=== PATIENT | female | born 1950 | race Caucasian/White ===

== ENCOUNTER → 2018-06-11 | Outpatient (CLI) | payer MEDICARE ==
--- NOTE | 2018-06-11 13:10 | ECHOS ---
STRESS ECHOCARDIOGRAM INDICATIONS: Preoperative. MEDICATIONS: Crestor, verapamil, flecainide, , Klonopin, Nexium, Mirapex. BASELINE HEART RATE: 73 BASELINE BLOOD PRESSURE: 189/76 MAXIMUM HEART RATE: 157 MAXIMUM BLOOD PRESSURE: 218/80 85% MPHR: 131 100% MPHR: 154 METS: 4.4 MAXIMUM STAGE REACHED: I TOTAL EXERCISE TIME: 3:00 CLINICAL INFORMATION: Patient was exercised for a total period of 3 minutes. The test was terminated because of shortness of breath. The resting heart rate was 73 beats per minute. Resting blood pressure was 189/76 mmHg. Peak heart rate of 157 was achieved. Maximum blood pressure was 218/80 mmHg. Test was terminated because patient got short of breath. The resting EKG shows normal sinus rhythm with normal KS interval and QRS duration and normal ST-T waves. During exercise J-point depression with upsloping ST segments are noted and occasional PVCs were noted. One episode of ventricular triplet was noted. The baseline echocardiographic images reveals normal left ventricular chamber size with normal left ventricular systolic function in the immediate post exercise period. Normal increase in the wall thickness and contractility is noted. FINAL IMPRESSION: 1. This stress echocardiographic study is negative for stress-induced ischemia. 2. EKG portion of the stress test shows equivocal upsloping ST-segment changes which could be secondary to hypertension. 3. Intermittent premature ventricular contractions and one episode of ventricular triplet was noted. 4. Patient's exercise tolerance is below average. 5. There is a heavy calcification of the tip of the mitral leaflet is noted. MMODL / IJN: [id number] /
== END ==
LOC: RADNMMAIN 09:04
PROVIDERS: ATTEND Internal Medicine Cardiovascular Disease
DX: I49.3 Ventricular premature depolarization (principal); I10 Essential (primary) hypertension
CPT/HCPCS: 93351

== ENCOUNTER → 2023-12-09 | Outpatient (CLI) | payer MEDICARE ==
[2023-12-09 14:54] LABS: African American GFR (CKD) 63 (>60 ml/min/1.73 sqM); Blood Urea Nitrogen 17 mg/dL (7-17); Non-African American GFR(CKD) 55 (>60 ml/min/1.73 sqM)
--- NOTE | 2023-12-09 16:21 | CT ---
EXAMINATION TYPE: CT angio neck DATE OF EXAM: 12/09/2023 COMPARISON: None HISTORY: 89 year-old female I65.21 CAROTID STENOSIS, occlusion and stenosis right internal carotid a rtery TECHNIQUE: Contiguous axial scanning of the neck performed with IV Contrast, patient injected with 75 ML mL of Isovue 370. Coronal/sagittal MIP reconstructions performed. 3-D reconstructions generated on a dedicated workstation. CT DLP: 421 mGycm Automated exposure control for dose reduction was used. FINDINGS: There is slight asymmetric thickening along the left aryepiglottic fold which may be positional. Dire ct visualization to exclude a mucosal lesion here. Prominent strandy atelectasis in the lower lungs. Minimal atherosclerotic arch calcifications. Bovine configuration to the aortic arch. The left vertebral artery is slightly more dominant than the right but otherwise, both are patent thr oughout their course. Prominent atherosclerotic changes at the right carotid bifurcation. The right common carotid artery i s patent but with mild to moderate, approximately 50% stenosis distally just prior to the bifurcation . The atherosclerotic calcifications extend into the proximal right ICA where there is severe narrowing of the 85%. Remainder of the right ICA is patent. The left common carotid artery is patent. Prominent atherosclerotic calcifications in the left caroti d bifurcation. This results in moderate, 60% stenosis distal CCA just prior to the bifurcation. Atherosclerotic plaque and calcification continues into the carotid bulb which shows mild narrowing o f 30%. Remainder of the left ICA is patent. Visualized intercranial structures shows variant hypoplastic A1 segment right ANUPAM and prominent contr ibution from a right posterior communicating artery. NASCET criteria was utilized. IMPRESSION: 1. BOVINE CONFIGURATION TO THE AORTIC ARCH. PROMINENT ATHEROSCLEROTIC CHANGES OF THE BILATERAL CAROTI D BIFURCATIONS. 2. ON THE RIGHT, THIS RESULTS IN MODERATE 50% STENOSIS AT THE BIFURCATION. PLAQUE EXTENDS INTO THE OR IGIN OF THE RIGHT ICA WHERE THERE IS SEVERE, 85% STENOSIS. 3. ON THE LEFT, ATHEROSCLEROTIC CHANGE RESULTS IN MODERATE, 60% STENOSIS AT THE CAROTID BIFURCATION A ND MILD, 30% STENOSIS PROXIMAL LEFT ICA. 4. Slight asymmetric thickening along the left aryepiglottic fold may be positional. Correlate with d irect visualization to exclude a mucosal lesion here. [facility], , 12/09/2023 4:19 PM
== END | disposition home or self-care (01) ==
LOC: RADCTMAIN 14:02
PROVIDERS: ATTEND Family Medicine
DX: I65.21 Occlusion and stenosis of right carotid artery
CPT/HCPCS: 36415; 70498; 82565; 84520